=== PATIENT | male | born 2000 | race Caucasian/White ===

== ENCOUNTER 2024-12-27 23:24 | Emergency (ER) | payer OTHER, SELFPAY ==
--- NOTE | ~2024-12-27 | XR_ITS ---
Clinical Indication: Shortness of breath PA and lateral views of the chest: Comparison: None Findings: The lungs are clear, without evidence of focal consolidation or pleural effusion. Cardiome diastinal silhouette is within normal limits. Bones and soft tissues are unremarkable. Impression: Normal chest. Reviewed, dictated and finalized at [facility]. Impression: Normal chest.
[2024-12-27 23:27] VITALS: BP 136/77; PULSE 122; RESP 20; TEMP 37.3; O2SAT 100
[2024-12-27 23:32] VITALS: BP 145/93; PULSE 96; RESP 17; TEMP 36.3; O2SAT 100
[2024-12-27 23:44] VITALS: O2SAT 100
--- OUTSIDE RECORDS SUMMARY | 2024-12-28 00:20 | XMS_ITS | Clinical Summary ---
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 Name Role Phone Unavailable Primary Care Provider Unavailabl e Active Problems No known active problems Encounters Date Type Department Care Team Description 12/07/2024 External Device Data [facility] Provider, Abstract 11/10/2024 External Device Data [facility] Provider, Abstract 11/09/2024 External Device Data [facility] Provider, Abstract from Last 3 Months Social History Tobacco Use Types Packs/Day Years Used Date Smoking Tobacco: Never Assessed Sex and Gender Information Value Date Recorded Sex Assigned at Not on file Legal Sex Male 7:24 PM CDT Gender Identity Not on file Sexual Orientation Not on file Last Filed Vital Signs Vital Sign Reading Time Taken Comments Blood Pressure 120/76 09/16/2024 1:42 PM CDT Pulse - - Temperature - - Respiratory Rate - - Oxygen Saturation - - Inhaled Oxygen Concentration - - Weight 122.5 kg (270 lb) 09/16/2024 1:42 PM CDT Height 171.5 cm (5' 7.5) 09/16/2024 1:42 PM CDT Body Mass Index 41.66 09/16/2024 1:42 PM CDT Plan of Treatment Health Maintenance Due Date Last Done Comments DTAP/TDAP/TD VACCINES (7 - T d or Tdap) 12/27/2019 12/26/2009, 09/13/2003, 06/24/1999, Additional history exists INFLUENZA VACCINE (#1) 2025 , 04/10/2014, 03/22/2014, Additional history exists HEPATITIS B VACCINES Completed 1998, 1998, 1998 HPV VACCINES Completed 07/11/2013, 02/21, 01/04/2013 Insurance * Guarantor: [employer] (C) Account Type Relation to Patient Date of Phone Billing Address Corporate 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
[2024-12-28 00:24] VITALS: BP 118/79; BP 125/95; BP 136/102; PULSE 103; PULSE 113; PULSE 98
--- NOTE | 2024-12-28 00:24 | ECG_ITS ---
Test Date: 2024-12-28 00:43:22 Measurements Intervals [place] Rate: 102 P: -14 CO: 124 QRS: 30 QRSD: 103 T: 11 QT: 343 QTc: 448 Interpretive Statements SINUS TACHYCARDIA POSSIBLE RIGHT VENTRICULAR CONDUCTION DELAY [RSR (QR) IN V1/V2] ABNORMAL RHYTHM ECG No previous ECG available for comparison Electronically Signed On 12-28-2024 07:51:50 CDT by Jean-Pierre Chapman M.D.
[2024-12-28] MEDS: SODIUM CHLORIDE 0.9% IV 1,000 ML 999 ML IV CONT (00:38)
--- NOTE | 2024-12-28 00:40 | ED_ITS ---
HPI - Dizziness General Chief Complaint: Dizziness Stated Complaint: NUMBNESS,LIGHTHEADEDNESS SINCE 2229 Time Seen by Provider: 12/27/24 23:30 Source: patient Mode of arrival: ambulatory Limitations: no limitations History of Present Illness HPI Narrative: Patient is a 24 y/o male who presents to the ED with c/o dizziness. Patient reports he has been having intermittently dizzy over the past couple of days. He was then talking to his friend donnell and began feeling increasingly dizzy, lightheaded, began feeling cold and numb all over. Began feeling anxious. States he then had difficulty breathing. States it was as though he forgot how to breathe. Did report having some chest tightness. He then prompted here for further evaluation. His still feeling somewhat lightheaded currently. Does have a history of anxiety, is not on any medication for this. Denies previous history of panic attacks. Denies focal weakness, syncope. Patient did admit to triage nurse that he smoked marijuana prior to when symptoms began tonight. Related Data Allergies Allergy/AdvReac Type Severity Reaction Status Date / Time AMOXICILLIN TRIHYDRATE Allergy Hives Uncoded 12/27/24 23:39 POTASSIUM CLAVULANATE Allergy Hives Uncoded 12/27/24 23:39 Review of Systems 2 Review of Systems: All systems reviewed & are unremarkable except as noted in HPI. All systems reviewed & are unremarkable except as noted in HPI and below Exam 2 Narrative: GENERAL: Anxious appearing, obese with BMI of 39.4, non-toxic, in no acute distress. HEAD: Normocephalic, atraumatic. EYES: PERRL/EOMI, conjunctivae clear bilaterally. No nystagmus. NECK: Supple. No meningeal signs. RESPIRATORY: Airway patent, respirations nonlabored. Clear to auscultation bilaterally, no rales, rhonchi, wheezing. CARDIOVASCULAR: Regular rate and rhythm without murmurs, rubs, or gallops. Radial pulses 2+ and equal bilaterally. MUSCULOSKELETAL: Moves all extremities. No gross deformities. SKIN: Warm, dry, normal color. No rashes. NEURO: A&O X3. Speech clear. Follows commands. CN II-XII grossly intact. Sensation grossly intact. Steady gait. No ataxic movements. Strength 5/5 in upper and lower extremities bilaterally. No pronator drift. Equal hydrostatic tubing tester strength bilaterally. PSYCHIATRIC: Anxious, somewhat tremulous. Normal interaction. Course Vital Signs Vital signs: Vital Signs Temperature 99.1 F 12/27/24 23:27 Pulse Rate 122 H 12/27/24 23:27 Respiratory Rate 20 12/27/24 23:27 Blood Pressure 136/77 12/27/24 23:27 Pulse Oximetry 100 12/27/24 23:27 Temperature 98.3 F 12/28/24 02:04 Pulse Rate 94 12/28/24 02:04 Respiratory Rate 17 12/28/24 02:04 Blood Pressure 115/76 12/28/24 02:04 Pulse Oximetry 96 12/28/24 02:04 Oxygen Delivery Room Air 12/27/24 23:32 MDM - Dizziness MDM Narrative Medical decision making narrative: Patient presented to ED with dizziness, lightheadedness, numbness, anxiety. Vital signs stable upon arrival. He was mildly tachycardic upon arrival but very anxious appearing. Orthostatic vital signs were evaluated and patient did have slight increase in heart rate. No significant change in blood pressure. Patient neurologically intact. EKG with sinus tachycardia, no concerning ST changes. Troponin undetectable. Chest x-ray interpreted by myself without acute findings. D-dimer within normal range. Remainder basic laboratory studies were otherwise fairly unremarkable. Potassium was slightly low at 3.2. Replaced orally. Mag within normal range. Patient given fluids and small dose of Ativan in the ED. On re-evaluation, he is sleeping and feeling much improved. Feel patient is safe for discharge home at this time. Suspect anxiety/panic, orthostatic hypotension, weed exacerbating symptoms. Patient given strict return precautions. Advised to stay well hydrated at home. He is in agreement with plan. Feels comfortable going home. Discharged in stable condition. Medical Records Attestation: I reviewed the patient's medical records. Lab Data Attestation: I reviewed the patient's lab results. 12/28/24 00:37 12/28/24 00:37 Labs: Lab Results 12/28/24 Range/Units 00:37 WBC 11.5 H (4.5-10.0) K/mm3 RBC 5.21 (4.6-6.20) M/mm3 Hgb 14.8 (14.0-18.0) g/dL Hct 42.7 (42.0-52.0) % MCV 82.0 (80-100) fl MCH 28.4 (26-34) pg MCHC 34.7 (32-36) g/dl RDW 12.5 (11.5-14.5) % Plt Count 252 (150-375) k/mm3 MPV 10.0 (7.4-10.4) fl Immature Gran % (Auto) 0.4 (0-0.5) % Neut % (Auto) 70.3 (45.5-73.1) % Lymph % (Auto) 20.7 (18.3-44.2) % Brooks % (Auto) 7.3 (2.6-8.5) % Eos % (Auto) 1.0 (0-4.4) % Baso % (Auto) 0.3 (0.2-1.2) % Lymph # (Auto) 2.37 (0.9-3.2) K/mm3 Brooks # (Auto) 0.8 H (0.1-0.6) K/mm3 Eos # (Auto) 0.1 (0-0.3) K/mm3 Baso # (Auto) 0.0 (0.0-0.1) K/mm3 Abs Immat Gran (auto) 0.05 H (0.00-0.031) K/mm3 Absolute Neuts (auto) 8.1 H (1.3-6.7) K/mm3 Absolute Nucleated RBC 0.000 (0.0-0.012) K/mm3 Nucleated RBC % 0.0 (0.0-0.2) % PT 12.9 (11.1-14.7) Seconds INR 1.0 APTT 29.4 (22.3-36.8) Seconds D-Dimer < 0.27 (<0.48) ug/mL Sodium 140 (137-145) mmol/L Potassium 3.2 L (3.4-5.0) mmol/L Chloride 105 (98-107) mmol/L Carbon Dioxide 23 (22-30) mmol/L Anion Gap 12 (4-12) mmol/L BUN 12 (9-20) mg/dL Creatinine 0.91 (0.7-1.3) mg/dL Estim Creat Clear Calc 130 ml/min Estimated GFR > 60 (59 - ) Glucose 95 (65-110) mg/dL Calcium 10.2 (8.4-10.2) mg/dL Magnesium 1.7 (1.6-2.3) mg/dL Total Bilirubin 0.4 (0.2-1.3) mg/dL AST 27 (17-59) U/L ALT 41 (6-50) U/L Alkaline Phosphatase 49 (38-126) U/L Troponin I < 0.012 (0.000-0.034) ng/mL Total Protein 7.9 (6.3-8.2) g/dL Albumin 4.7 (3.5-5.1) g/dL Imaging Data Attestation: I personally reviewed and interpreted this imaging study as follows: My impression: CXR: No acute cardiopulmonary abnormality. ECG Data EKG #1: Attestation: I personally reviewed and interpreted this ECG as follows: ECG completion date: 12/28/24 ECG completion time: 00:43 EKG Interpretation: tachycardia (102), sinus rhythm and no ST changes Discharge Plan Discharge Clinical Impression: Dizziness, Orthostatic hypotension, Anxiety Patient Disposition: Home Condition: Stable Instructions: Antibiotic Form, Hypotension (ED), Lightheadedness (ED), Dizziness (ED), Anxiety (ED) Additional Instructions: Your workup here was reassuring. Stay well hydrated at home. Recommend follow- up with your primary care doctor for further evaluation. Avoid further marijuana use as this may exacerbate your anxiety. Return to the ED if you experience worsening or severe symptoms, severe dizziness, passing out, severe anxiety, chest pain, difficulty breathing, or any other symptoms of concern. Patient Language: Ecuadorean Follow-up/Referrals: PHYSICIAN,WAGON WINDER [Primary Care Provider] - Dennis Do MD [Physician] - (PRIMARY CARE) Time of Disposition: 01:48
[2024-12-28 00:45] LABS: Hematocrit 42.7 % (42.0-52.0); Hemoglobin 14.8 g/dL (14.0-18.0); Immature Granulocyte Percent A 0.4 % (0-0.5); Lymphocytes Absolute Auto 2.37 K/mm3 (0.9-3.2); Mean Corpuscular HGB Conc 34.7 g/dl (32-36); Mean Corpuscular Hemoglobin 28.4 pg (26-34); Mean Corpuscular Volume 82.0 fl (80-100); Nucleated Red Blood Cells Absolute Auto 0.000 K/mm3 (0.0-0.012); Nucleated Red Blood Cells Perc 0.0 % (0.0-0.2); Platelet Count Result 252 k/mm3 (150-375); Red Blood Count 5.21 M/mm3 (4.6-6.20); White Blood Count 11.5 K/mm3 (4.5-10.0)
[2024-12-28] MEDS: LORazepam INJ (*CRX) 2 MG/ML VIAL 0.5 MG IV PUSH (00:48)
[2024-12-28 00:58] LABS: Magnesium 1.7 mg/dL (1.6-2.3)
[2024-12-28 00:59] LABS: INR 1.0; Prothrombin Time 12.9 Seconds (11.1-14.7)
[2024-12-28 01:00] LABS: Partial Thromboplastin Time 29.4 Seconds (22.3-36.8)
[2024-12-28 01:10] LABS: Alanine Aminotransferase 41 U/L (6-50); Albumin Level 4.7 g/dL (3.5-5.1); Alkaline Phosphatase 49 U/L (38-126); Anion Gap 12 mmol/L (4-12); Aspartate Amino Transferase 27 U/L (17-59); Bilirubin,Total 0.4 mg/dL (0.2-1.3); Blood Urea Nitrogen 12 mg/dL (9-20); Calcium 10.2 mg/dL (8.4-10.2); Carbon Dioxide 23 mmol/L (22-30); Chloride 105 mmol/L (98-107); Estimated CRCL calculation 130 ml/min; Estimated Glomerular Filt Rate > 60; Glucose 95 mg/dL (65-110); Potassium 3.2 mmol/L (3.4-5.0); Sodium 140 mmol/L (137-145); Total Protein 7.9 g/dL (6.3-8.2); Troponin I < 0.012 ng/mL (0.000-0.034)
[2024-12-28 01:19] VITALS: BP 120/83; PULSE 78
[2024-12-28] MEDS: POTASSIUM CHLORIDE 20 MEQ ER TABLET 40 MEQ PO (01:58)
[2024-12-28 02:04] VITALS: BP 115/76; PULSE 94; RESP 17; TEMP 36.8; O2SAT 96
== END 2024-12-28 02:05 | disposition home or self-care (01) ==
PROVIDERS: Emergency Provider Physician Assistant
DX: R42 Dizziness and giddiness (principal); I95.1 Orthostatic hypotension; F41.9 Anxiety disorder, unspecified; R00.0 Tachycardia, unspecified
CPT/HCPCS: 36415; 71046; 80053; 83735; 84484; 85025; 85380; 85610; 85730; 93005; 96361; 96374; 99284; A9270; J2060; J7030